=== PATIENT | female | born 2000 | race Two or more races ===

== ENCOUNTER → 2018-04-14 | Outpatient (CLI) | payer MEDICAID | LOC: HPND 10:05 | PROVIDERS: ATTEND Obstetrics & Gynecology | DX: O46.8X3 Other antepartum hemorrhage, third trimester (principal); O09.33 Supervision of pregnancy with insufficient antenatal care, third trimester; O99.333 Smoking (tobacco) complicating pregnancy, third trimester | CPT/HCPCS: 76816 ==

== ENCOUNTER 2018-05-11 18:24 | Inpatient (IN) ==
[~2018-05-11 18:24] MED LIST: Diphtheria/Tetanus/Pertussis Vaccine Inj 0.5 ML Syringe IM ONE; Measles/Mumps/Rubella Vaccine Inj 0.5 ML Vial SQ ONE
[2018-05-11] MEDS ORDERED: Oxytocin 30 Units/500ml Premix 30 UNITS/500 ML BAG IV.SIG ONE (19:07)
[2018-05-11] MEDS ORDERED: fentaNYL Citrate Inj 100 MCG/2 ML Ampul IV.PUSH PRN ×2 (19:07)
[2018-05-11] MEDS ORDERED: Naloxone Inj 0.4 MG/ML Vial IV.PUSH PRN ×2 (19:07→21:42)
[2018-05-11] MEDS ORDERED: Sod Chloride 0.9% Inj 1,000 ML IV.CONT PRN (19:07)
[2018-05-11] MEDS ORDERED: Sodium Chlor 0.9% Inj 500 ML IV.SIG PRN (19:07)
--- NOTE | 2018-05-11 19:07 | ED ---
History of Present Illness Primary Care Physician: Dr. Carrasco Chief Complaint: contractions History of Present Illness: Patient is a 17 yo at 39.5 wks gestation presenting to OB triage due to sxs of contractions that began at 4pm this afternoon. Contractions have increased in frequency occurring every 5 mins. Patient also reports that she also had blood tinged vaginal discharge since Friday, slight increase in amount today. Denies LOF. Endorses movement. Denies CP, SOB, N/V, LE swelling, SMITH, vision issues or dizziness. Patient is GBS negative. Of note: Patient had h/o chlamydia infection during this with a negative test of cure on 04/02/18. Patient also recently completed treatment for UTI a day ago. Weeks Gestation:: 39 Para: 0 : 1 Last menstrual period: 08/06/2017 Total # of Miscarriage(s): 0 Total # of Abortions (Spontaneous & Elective): 0 Review of Systems All other systems reviewed negative except as stated in HPI PMFSH - History History Provided By: Patient - Medical / Surgical Hx Neg / Unobtainable Medical Problems Denied: Yes Surgical History: No Previous Surgery - Medical History Medical History: Medical History (Last Updated 05/11/18 @ 19:16 by Ronen Landa MD, R2) History of UTI History of chlamydia infection - Tobacco History Smoking Status: Never smoker - Alcohol History How Often Do You Have a Drink Containing Alcohol: Never - Substance Use History Substance History: No History of Abuse Medications and Allergies Allergies Allergy/AdvReac Type Severity Reaction Status Date / Time No Known Allergies Allergy Verified 05/04/18 14:04 Home Medications Medication Instructions Recorded Confirmed Type [id number] fum-folic ac-om3 1 tab PO DAILY 05/11/18 05/11/18 History [One A Day Women[facility]] Exam Vital signs: Vital Signs 05/11/18 18:49 05/11/18 18:52 Temperature 98.1 F Pulse Rate 100 H Respiratory Rate 17 Blood Pressure 126/74 Narrative: GENERAL: Well-nourished, well-developed patient. SKIN: Warm and dry. HEAD: Normocephalic and atraumatic. EYES: No scleral icterus. No injection or drainage. ENT: No nasal drainage noted. Mucous membranes pink. Airway patent. NECK: Supple, trachea midline. No JVD. CARDIOVASCULAR: Regular rate and rhythm without murmurs, gallops, or rubs. RESPIRATORY: Breath sounds equal bilaterally. No accessory muscle use. BREASTS: Bilateral exam showed no masses , no retractions, no nipple discharge. ABDOMEN/GI: Abdomen soft, non-tender, bowel sounds present, no rebound, no guarding Gravid to 39 weeks size GENITOURINARY: External Genitalia: intact and normal in appearance Cervix: midposition Dilatation: 5-6 Effacement: 90 Station: -2 Membranes: bulging Uterine Contractions: every 2 mins FHT's: Category:1 Baseline: 150 Reactive: reactive Variability: moderate Decels: none EXTREMITIES: No cyanosis or edema. +2 DP pulses BL BACK: Nontender without obvious deformity. No CVA tenderness. NEUROLOGICAL: Awake and alert. Motor and sensory grossly within normal limits. Five out of 5 muscle strength in all muscle groups. Normal speech. Assessment and Plan - Diagnosis (1) 39 weeks gestation of Code(s): Z3A.39 - 39 weeks gestation of Status: Acute Plan: Patient is a 17 yo at 39.5 wks gestation presenting to OB triage due to sxs of contractions occurring every 5mins. IUP at 39 wks 1. oral hydration 2. cervical exam: bulging membranes/5-6cm dilation/ 90 effaced/ -2 station 3. FHT category 1, NST reassuring 4. Patient with contractions every 2 mins 5. GBS negative 6. Admit to labor and delivery DW Dr. Rubin Discharge Plan - Physicians Team ED Provider: Sanam Rubin Primary Care Provider: Primary Care PhysiciMaci - Rxs /Orders / Referrals /Forms Prescriptions: No Action [id number] fum-folic ac-om3 [One A Day Women[facility] DHA] 28 mg iron- 800 mcg Combo Pack 1 tab PO DAILY - Discharge Instructions Print Language: Azeri
[2018-05-11] MEDS ORDERED: Citric Acid/Sodium Citrate Liq 30 ML UDC PO SCH (19:15)
--- NOTE | 2018-05-11 19:23 | P.HPOB ---
History of Present Illness Primary Care Physician: Dr. Carrasco Chief Complaint: contractions History of Present Illness: Patient is a 17 yo at 39.5 wks gestation presenting to OB triage due to sxs of contractions that began at 4pm this afternoon. Contractions have increased in frequency occurring every 5 mins. Patient also reports that she also had blood tinged vaginal discharge since Friday, slight increase in amount today. Denies LOF. Endorses movement. Denies CP, SOB, N/V, LE swelling, SMITH, vision issues or dizziness. Patient is GBS negative. Of note: Patient had h/o chlamydia infection during this with a negative test of cure on 04/02/18. Patient also recently completed treatment for UTI a day ago. Weeks Gestation:: 39 Para: 0 : 1 Last menstrual period: 08/06/2017 Total # of Miscarriage(s): 0 Total # of Abortions (Spontaneous & Elective): 0 Review of Systems All other systems reviewed negative except as stated in HPI PMFSH - History History Provided By: Patient - Medical / Surgical Hx Neg / Unobtainable Medical Problems Denied: Yes Surgical History: No Previous Surgery - Medical History Medical History: Medical History (Last Updated 05/11/18 @ 19:16 by Ronen Landa MD, R2) History of UTI History of chlamydia infection - Tobacco History Smoking Status: Never smoker - Alcohol History How Often Do You Have a Drink Containing Alcohol: Never - Substance Use History Substance History: No History of Abuse Medications and Allergies Allergies Allergy/AdvReac Type Severity Reaction Status Date / Time No Known Allergies Allergy Verified 05/04/18 14:04 Home Medications Medication Instructions Recorded Confirmed Type -hmon fum-folic ac-om3 1 tab PO DAILY 05/11/18 05/11/18 History [One A Day Women[facility] DHA] Exam Vital signs: Vital Signs 05/11/18 18:49 05/11/18 18:52 Temperature 98.1 F Pulse Rate 100 H Respiratory Rate 17 Blood Pressure 126/74 Narrative: GENERAL: Well-nourished, well-developed patient. SKIN: Warm and dry. HEAD: Normocephalic and atraumatic. EYES: No scleral icterus. No injection or drainage. ENT: No nasal drainage noted. Mucous membranes pink. Airway patent. NECK: Supple, trachea midline. No JVD. CARDIOVASCULAR: Regular rate and rhythm without murmurs, gallops, or rubs. RESPIRATORY: Breath sounds equal bilaterally. No accessory muscle use. BREASTS: Bilateral exam showed no masses , no retractions, no nipple discharge. ABDOMEN/GI: Abdomen soft, non-tender, bowel sounds present, no rebound, no guarding Gravid to 39 weeks size GENITOURINARY: External Genitalia: intact and normal in appearance Cervix: midposition Dilatation: 5-6 Effacement: 90 Station: -2 Membranes: bulging Uterine Contractions: every 2 mins FHT's: Category:1 Baseline: 150 Reactive: reactive Variability: moderate Decels: none EXTREMITIES: No cyanosis or edema. +2 DP pulses BL BACK: Nontender without obvious deformity. No CVA tenderness. NEUROLOGICAL: Awake and alert. Motor and sensory grossly within normal limits. Five out of 5 muscle strength in all muscle groups. Normal speech. Assessment and Plan - Diagnosis (1) 39 weeks gestation of Code(s): Z3A.39 - 39 weeks gestation of Status: Acute Plan: Patient is a 17 yo at 39.5 wks gestation presenting to OB triage due to sxs of contractions occurring every 5mins. IUP at 39 wks 1. oral hydration 2. cervical exam: bulging membranes/5-6cm dilation/ 90 effaced/ -2 station 3. FHT category 1, NST reassuring 4. Patient with contractions every 2 mins 5. GBS negative 6. Admit to labor and delivery for expectant management Dr. Carrasco made aware of admission DW Dr. Rubin Discharge Plan - Physicians Team ED Provider: Sanam Rubin Primary Care Provider: Primary Care Physici,Maci - Rxs /Orders / Referrals /Forms Prescriptions: No Action [id number] fum-folic ac-om3 [One A Day Women[facility] DHA] 28 mg iron- 800 mcg Combo Pack 1 tab PO DAILY - Discharge Instructions Print Language: Occitan
[2018-05-11 20:25] LABS: Baso % (Auto) 0.4 % (0.0-2.0); Eos % (Auto) 0.5 % (0.0-4.0); Hematocrit 35.7 % (35.0-46.0); Hemoglobin 12.1 gm/dL (11.6-15.3); Lymph # (Auto) 1.7 th/mm3 (1.0-4.8); Lymph % (Auto) 17.3 % (9.0-44.0); Mean Corpuscular Hemoglobin 28.8 pg (27.0-34.0); Mean Corpuscular Volume 84.8 fL (80.0-100.0); Mean Platelet Volume 8.3 fL (7.0-11.0); Mono # (Auto) 0.9 th/mm3 (0.0-0.9); Mono % (Auto) 9.5 % (0.0-8.0); Neut # (Auto) 7.2 th/mm3 (1.8-7.7); Neut % (Auto) 72.3 % (16.0-70.0); Platelet Count 317 th/mm3 (150-450); Red Blood Count 4.21 mil/mm3 (4.00-5.30); Red Cell Distribution Width 13.6 % (11.6-17.2); White Blood Count 9.9 th/mm3 (4.0-11.0)
--- NOTE | 2018-05-11 20:31 | P.PNADD ---
Addendum to Inpatient Note Reason for Addendum: Additional Documentation Additional information: Patient seen and examined. Currently without complaints. Continues to feel consistent contractions 3-5 minutes apart. Defers epidural at this time. Cervix- 6cm, 90% Position: -2 AROM performed, meconium fluid expressed.
[2018-05-11 20:36] LABS: Amphetamine Urine With Conf Neg (Neg); Benzodiazepine Urine With Conf Neg (Neg)
[2018-05-11] MEDS ORDERED: Lidocaine PF 1% Inj 30 ML Vial ONE (21:05)
--- NOTE | 2018-05-11 21:41 | P.OBDELI ---
Weeks Gestation: 39 Patient Started Active Labor: Yes Active Labor Start Date: 05/11/18 Artificial Rupture of Membrane: Yes Artificial ROM Date: 05/11/18 Anesthesia: None Episiotomy: none Vaginal Delivery: Normal, Spontaneous Presentation: Occiput anterior, Vertex Nuchal Cord: None Delayed Cord Clamping (45 sec): Yes Placenta: Spontaneous delivery, Intact, 3 vessel cord Laceration: 2 deg (Right lower) Repair: Chromic running Estimated blood loss (mL): 50 Infant: Female Infant Female A Delivery Date: 05/11/18 Infant Delivery Time: 20:58 Weight: 3.205 kg score (1 min): 7 score (5 min): 8 Additional Information: Meconium covered Attestation Collaborating MD Comments: I directly supervised the and the repair of laceration
[2018-05-11] MEDS ORDERED: Bisacodyl 10 MG Supp RECTAL PRN (21:42)
[2018-05-11] MEDS ORDERED: Zolpidem Tartrate 5 MG Tablet PO PRN (21:42)
[2018-05-11] MEDS ORDERED: Witch Hazel 50%/Glyderin 12.5% 40 Pad Jar RECTAL PRN (21:42)
[2018-05-11] MEDS ORDERED: Benzocaine 20% Top Spray 60 ML Can TOPICAL PRN (21:42)
[2018-05-11] MEDS ORDERED: Acetaminophen 325 MG Tablet PO PRN (21:42)
[2018-05-11] MEDS ORDERED: Oxytocin 30 Units/500ml Premix 30 UNITS/500 ML BAG IV.CONT SCH (21:45)
[2018-05-12] MEDS ORDERED: Senna/Docusate Sodium 8.6/50 MG Tablet PO SCH (09:00)
[2018-05-12] MEDS ORDERED: Prenatal Vit/Ca/Iron/Folic Acid Tablet PO SCH (09:00)
--- NOTE | 2018-05-12 10:59 | P.PNOB ---
Subjective Post day: 1 Interval history: day #1 AFVSS overnight. Decreased lochia. Denies dysuria. No breast tenderness. She is feeding the baby via breast. Appetite good. No nausea or vomiting. Positive flatus. Ambulating well. Denies calf pain or shortness of breath. Otherwise, she is doing well this morning and has no other complaints. 17y/o female who is PPD#1 s/p . -Continue routine care. -Percocet and Motrin PRN pain. -Encouraged OOB. Advised pelvic rest for 6 wks. -Re: ctrl, she is considering Depo-Provera, will discuss decision tomorrow. -D/c in 1-2 more days. rocio Rubin Objective Vital Signs/I&O: Vital Signs 05/11/18 18:49 05/11/18 18:52 05/11/18 21:01 Temperature 98.1 F Pulse Rate 100 H 79 Respiratory Rate 17 Blood Pressure 126/74 133/79 Pulse Oximetry 05/11/18 21:11 05/11/18 21:16 05/11/18 21:40 Temperature Pulse Rate 94 H 90 Respiratory Rate 20 20 Blood Pressure 122/60 112/56 L Pulse Oximetry 05/11/18 21:45 05/11/18 22:02 05/11/18 22:16 Temperature 98.3 F Pulse Rate 79 83 74 Respiratory Rate 15 Blood Pressure 125/75 92/65 L 132/77 Pulse Oximetry 05/11/18 23:00 05/12/18 08:00 05/12/18 08:14 Temperature 97.6 F 98.0 F 98.1 F Pulse Rate 64 85 80 Respiratory Rate 17 18 18 Blood Pressure 119/74 104/54 L 104/54 L Pulse Oximetry 100 Intake & Output 05/11/18 05/12/18 05/12/18 18:59 06:59 18:59 Weight 96 kg Result Diagrams: 05/11/18 19:43 Objective Remarks: GENERAL: Well-nourished, well-developed patient. CARDIOVASCULAR: Regular rate and rhythm without murmurs, gallops, or rubs. RESPIRATORY: Breath sounds equal bilaterally. No accessory muscle use. ABDOMEN/GI: Abdomen soft, non-tender. Fundus: Firm, non-tender at umbilicus. GENITOURINARY: Light to moderate bleeding. EXTREMITIES: No cyanosis or edema, non-tender, without signs of DVT. Medications and IVs: Active Medications Acetaminophen (Tylenol) 650 mg PO Q4H PRN PRN Reason: PAIN SCALE 1 TO 2 Al Hydroxide/Mg Hydroxide (Milk Of Magnesia Liq) 30 ml PO Q12H PRN PRN Reason: Mild Constipation Benzocaine (Americaine 20% Top [place]) 1 spray TOPICAL Q4H PRN PRN Reason: For Perineum Discomfort Last Admin: 05/12/18 00:04 Dose: 1 spray Bisacodyl (Dulcolax Supp) 10 mg RECTAL DAILY PRN PRN Reason: SEVERE CONSITIPATION Lactulose (Lactulose Liq) 30 ml PO DAILY PRN PRN Reason: SEVERE CONSITIPATION Naloxone HCl (Narcan Inj) 0.1 mg IV.PUSH Q2M PRN PRN Reason: for opiate reversal Ondansetron HCl (Zofran Odt) 4 mg PO Q6H PRN PRN Reason: NAUSEA OR VOMITING Vit/Calcium/Iron/Folic Ac (Stuartnatal Plus 3) 1 tab PO DAILY JM Senna/Docusate Sodium (Belia-Colace) 1 tab PO BID JM Sennosides (Senokot) 17.2 mg PO Q12H PRN PRN Reason: Moderate Constipation Sodium Chloride (Ns Flush) 2 ml IV.FLUSH BID JM Sodium Chloride (Ns Flush) 2 ml IV.FLUSH PRN PRN PRN Reason: FLUSH AFTER USING IV ACCESS Witch Rachel/Glycerin (Tucks Pads) 1 applicatio RECTAL QID PRN PRN Reason: HEMORRHOIDS Last Admin: 05/12/18 00:04 Dose: 1 applicatio Zolpidem Tartrate (Ambien) 5 mg PO HS PRN PRN Reason: SLEEP Assessment and Plan - Diagnosis (1) 39 weeks gestation of Code(s): Z3A.39 - 39 weeks gestation of Status: Acute Plan: 17y/o female who is PPD#1 s/p . -Continue routine care. -Percocet and Motrin PRN pain. -Encouraged OOB. Advised pelvic rest for 6 wks. -Re: ctrl, she is considering Depo-Provera, will discuss decision tomorrow. -D/c in 1-2 more days. rocoi Rubin
[2018-05-13] MEDS ORDERED: medroxyPROGESTERone Acetate Inj 150 MG/ML Syringe IM ONE (07:47)
--- NOTE | 2018-05-13 07:47 | P.PNOB ---
Subjective Post day: 2 Interval history: day #2 AFVSS overnight. Decreased lochia. Denies dysuria. No breast tenderness. She is feeding the baby via breast. Appetite good. No nausea or vomiting. Positive flatus/bowel movement. Ambulating well. Denies calf pain or shortness of breath. Otherwise, she is doing well this morning and has no other complaints. Objective Vital Signs/I&O: Vital Signs 05/12/18 08:00 05/12/18 08:14 05/12/18 20:00 Temperature 98.0 F 98.1 F 98.1 F Pulse Rate 85 80 83 Respiratory Rate Blood Pressure 104/54 L 104/54 L 114/70 Pulse Oximetry 100 Result Diagrams: 05/11/18 19:43 Objective Remarks: GENERAL: Well-nourished, well-developed patient. CARDIOVASCULAR: Regular rate and rhythm without murmurs, gallops, or rubs. RESPIRATORY: Breath sounds equal bilaterally. No accessory muscle use. ABDOMEN/GI: Abdomen soft, non-tender. Fundus: Firm, non-tender at umbilicus. GENITOURINARY: Light to moderate bleeding. EXTREMITIES: No cyanosis or edema, non-tender, without signs of DVT. Medications and IVs: Active Medications Acetaminophen (Tylenol) 650 mg PO Q4H PRN PRN Reason: PAIN SCALE 1 TO 2 Al Hydroxide/Mg Hydroxide (Milk Of Magnesia Liq) 30 ml PO Q12H PRN PRN Reason: Mild Constipation Benzocaine (Americaine 20% Top [place]) 1 spray TOPICAL Q4H PRN PRN Reason: For Perineum Discomfort Last Admin: 05/12/18 00:04 Dose: 1 spray Bisacodyl (Dulcolax Supp) 10 mg RECTAL DAILY PRN PRN Reason: SEVERE CONSITIPATION Lactulose (Lactulose Liq) 30 ml PO DAILY PRN PRN Reason: SEVERE CONSITIPATION Naloxone HCl (Narcan Inj) 0.1 mg IV.PUSH Q2M PRN PRN Reason: for opiate reversal Ondansetron HCl (Zofran Odt) 4 mg PO Q6H PRN PRN Reason: NAUSEA OR VOMITING Vit/Calcium/Iron/Folic Ac (Stuartnatal Plus 3) 1 tab PO DAILY JM Senna/Docusate Sodium (Belia-Colace) 1 tab PO BID JM Last Admin: 05/12/18 20:37 Dose: 1 tab Sennosides (Senokot) 17.2 mg PO Q12H PRN PRN Reason: Moderate Constipation Sodium Chloride (Ns Flush) 2 ml IV.FLUSH BID [facility] Last Admin: 05/12/18 20:36 Dose: Not Given Sodium Chloride (Ns Flush) 2 ml IV.FLUSH PRN PRN PRN Reason: FLUSH AFTER USING IV ACCESS Witch Rachel/Glycerin (Tucks Pads) 1 applicatio RECTAL QID PRN PRN Reason: HEMORRHOIDS Last Admin: 05/12/18 00:04 Dose: 1 applicatio Zolpidem Tartrate (Ambien) 5 mg PO HS PRN PRN Reason: SLEEP Assessment and Plan - Diagnosis (1) 39 weeks gestation of Code(s): Z3A.39 - 39 weeks gestation of Status: Acute Plan: 17y/o female who is PPD#2 s/p . -Continue routine care. -Motrin PRN pain. -Encouraged OOB. Advised pelvic rest for 6 wks. -Re: ctrl, she will receive a Depo-Provera today. -D/c today rocio Gong
== END 2018-05-13 12:20 | disposition home or self-care (01) ==
LOC: HOBED 18:24 → H2E 19:00 → H1EA 22:59
PROVIDERS: ADMIT Obstetrics & Gynecology Obstetrics; ATTEND Obstetrics & Gynecology Obstetrics